=== PATIENT | male | born 1980 | race Two or more races ===

== ENCOUNTER 2023-01-22 15:26 | Emergency (ER) | payer OTHER ==
[~2023-01-22] VITALS: Ht 165.1 cm; Wt 70.3 kg
== END 2023-01-22 18:10 | disposition home or self-care (01) ==
LOC: ER 15:26
DX: S86.812A Strain of other muscle(s) and tendon(s) at lower leg level, left leg, initial encounter (principal); Z88.6 Allergy status to analgesic agent

== ENCOUNTER 2023-01-23 10:35 | Emergency (ER) | payer OTHER ==
[~2023-01-23] VITALS: Ht 165.1 cm; Wt 70.3 kg
== END 2023-01-23 16:44 ==
LOC: ER 10:35
DX: M79.605 Pain in left leg (principal); M79.662 Pain in left lower leg; I82.812 Embolism and thrombosis of superficial veins of left lower extremity; Z88.6 Allergy status to analgesic agent